=== PATIENT | female | born 1960 | race Caucasian/White ===

== ENCOUNTER 2022-05-25 01:38 | Emergency (ER) | payer BC ==
[~2022-05-25] VITALS: Ht 157.5 cm; Wt 92.5 kg
[2022-05-25 01:45] VITALS: BP 129/54
[2022-05-25] MEDS ORDERED: IPRATROPIUM BROMIDE (0.02%) 0.5MG/2.5ML NEB HHN STA (02:24)
[2022-05-25] MEDS ORDERED: ALBUTEROL (0.083%) 2.5MG/3ML NEB HHN STA (02:24)
[2022-05-25] MEDS ORDERED: BENZONATATE 200MG CAPSULE PO ONE (02:30)
[2022-05-25] MEDS ORDERED: BENZONATATE 100MG CAPSULE PO NR (02:45)
[2022-05-25] MEDS ORDERED: BENZ100C86 MT (04:33)
[2022-05-25] MEDS ORDERED: CETI5TAB5 MT (11:32)
[2022-05-25] MEDS ORDERED: FENO145T25 MT (11:32)
[2022-05-25] MEDS ORDERED: ATOR10TA69 MT (11:32)
[2022-05-25] MEDS ORDERED: LOSA25TA26 MT (11:32)
[2022-05-25] MEDS ORDERED: [UNRECOGNIZED DRUG - CODE] PO (11:32)
[2022-05-26] MEDS ORDERED: METF-416 MT (08:00)
[2022-05-26] MEDS ORDERED: MONT10TA21 MT (08:02)
[2022-05-26] MEDS ORDERED: BETA1TAB20 MT (08:10)
== END 2022-05-25 04:10 | disposition home or self-care (01) ==
LOC: ER 01:38
DX: U07.1 COVID-19 (principal); I10 Essential (primary) hypertension; E11.9 Type 2 diabetes mellitus without complications; J45.909 Unspecified asthma, uncomplicated
CPT/HCPCS: 71045; 82962; 87426; 87804; 93005; 99285; C9803; Z7610

== ENCOUNTER 2022-05-25 05:51 | Inpatient (IN) | payer BC ==
[~2022-05-25] VITALS: Ht 157.5 cm; Wt 92.8 kg
[~2022-05-25 05:51] MED LIST: BENZ100C86 MT
[2022-05-25] MEDS ORDERED: SODIUM CHLORIDE 0.9% 1,000 ML IV ONE (06:45)
[2022-05-25] MEDS ORDERED: IPRATROPIUM BROMIDE (0.02%) 0.5MG/2.5ML NEB HHN STA (07:02)
[2022-05-25] MEDS ORDERED: ALBUTEROL (0.083%) 2.5MG/3ML NEB HHN STA (07:02)
[2022-05-25 07:27] LABS: HEMOGLOBIN. 11.2 g/dL (12.0-16.0); MEAN CORPUSCULAR HEMOGLOBIN 24.8 pg (28.0-32.0); MEAN PLATELET VOLUME 8.8 fl (7.4-10.4); RED CELL DISTRIBUTION WIDTH 15.9 % (11.6-14.6)
[2022-05-25] MEDS ORDERED: ALBUTEROL 6.7GM HFA INHALER ORI ONE (07:30)
[2022-05-25 07:34] LABS: BASOPHILS % 0.9 % (0.0-2.0); EOSINOPHILS % 1.3 % (0.0-5.0); HEMATOCRIT. 34.2 % (36.0-48.0); LYMPHOCYTES % 15.1 % (20.0-50.0); MEAN CORPUSCULAR VOLUME 75.8 fL (81.0-99.0); MONOCYTES % 11.8 % (2.0-8.0); NEUTROPHILS % 70.9 % (40.0-76.0); PLATELET 268 x1000/uL (130-400); RED BLOOD CELL COUNT 4.51 mill/uL (4.2-5.4)
[2022-05-25] MEDS ORDERED: BENZONATATE 100MG CAPSULE PO ONE (07:45)
[2022-05-25 07:56] LABS: CHLORIDE 100 mEq/L (98-107)
[2022-05-25] MEDS ORDERED: KETOROLAC 15MG/ML VIAL IV ONE (09:15)
[2022-05-25] MEDS ORDERED: ASPIRIN 81MG TABLET PO ONE (09:15)
[2022-05-25] MEDS ORDERED: ONDANSETRON HCL 4MG/2ML INJ IV PRN (11:15)
[2022-05-25] MEDS ORDERED: POTASSIUM CHLORIDE 20MEQ TABLET SR PO NR (11:15)
[2022-05-25] MEDS ORDERED: [UNRECOGNIZED DRUG - CODE] PO (11:32)
[2022-05-25] MEDS ORDERED: CETI5TAB5 MT (11:32)
[2022-05-25] MEDS ORDERED: LOSA25TA26 MT (11:32)
[2022-05-25] MEDS ORDERED: FENO145T25 MT (11:32)
[2022-05-25] MEDS ORDERED: ATOR10TA69 MT (11:32)
[2022-05-25 11:40] VITALS: BP 137/56
[2022-05-25 12:00] VITALS: BP 137/56
[2022-05-25] MEDS ORDERED: AZITHROMYCIN 500 MG in DEXT 5% WATER 250 ML IV SCH ×2 (12:00→14:00)
[2022-05-25] MEDS ORDERED: DEXTROSE 50% WATER 50ML SYRINGE IV PRN (13:00)
[2022-05-25] MEDS: ZINC SULFATE 220 MG ( 50 ) CAPSULE PO SCH (13:11)
[2022-05-25] MEDS ORDERED: IPRATROPIUM/ALBUTEROL 0.5-3(2.5)MG/3ML NEB HHN PRN (14:30)
[2022-05-25] MEDS ORDERED: ERGOCALCIFEROL 50000UNITS CAPSULE PO SCH (15:00)
[2022-05-25] MEDS: GUAIFENESIN-DM 200MG-20MG/10ML UDC PO PRN (15:46)
[2022-05-25 15:55] LABS: CLARITY URINE CLEAR (CLEAR); COLOR URINE YELLOW (YELLOW); KETONES URINE TRACE (NEGATIVE); LEUKOCYTE ESTERASE URINE NEGATIVE (NEGATIVE); NITRITE URINE NEGATIVE (NEGATIVE); OCCULT BLOOD URINE NEGATIVE (NEGATIVE); PH URINE 5.5 (4.5-8.0); PROTEIN URINE NEGATIVE (NEGATIVE)
[2022-05-25 16:00] VITALS: BP 111/45
[2022-05-25] MEDS: BENZONATATE 100MG CAPSULE PO SCH (16:50)
[2022-05-25] MEDS: INSULIN LISPRO 100 UNITS/ML SUBCUT SCH ×2 (17:10→21:00)
[2022-05-25] MEDS: BLOOD SUGAR DIAGNOSTIC STRIP TEST SCH ×2 (17:25→21:00)
[2022-05-25] MEDS: ENOXAPARIN 30MG/0.3ML SYR SUBCUT SCH (17:32)
[2022-05-25] MEDS: ACETAMINOPHEN 325MG TABLET PO PRN (17:32)
[2022-05-25] MEDS ORDERED: KETOROLAC 15MG/ML VIAL IV PRN (19:15)
[2022-05-25 20:00] VITALS: BP 122/66
[2022-05-25] MEDS: ASCORBIC ACID 500 MG TABLET PO SCH (21:27)
[2022-05-26] VITALS: BP 126/65
[2022-05-26 04:00] VITALS: BP_SYST 109; BP_SYST 126; BP_DIAS 57; BP_DIAS 65
[2022-05-26] MEDS: ENOXAPARIN 30MG/0.3ML SYR SUBCUT SCH ×2 (06:41→17:13)
[2022-05-26] MEDS: BLOOD SUGAR DIAGNOSTIC STRIP TEST SCH ×4 (06:41→21:16)
[2022-05-26] MEDS: GUAIFENESIN-DM 200MG-20MG/10ML UDC PO PRN (06:41)
[2022-05-26] MEDS: INSULIN LISPRO 100 UNITS/ML SUBCUT SCH ×4 (06:42→22:11)
[2022-05-26 08:00] VITALS: BP 133/72
[2022-05-26] MEDS ORDERED: METF-416 MT (08:00)
[2022-05-26] MEDS ORDERED: MONT10TA21 MT (08:02)
[2022-05-26] MEDS ORDERED: BETA1TAB20 MT (08:10)
[2022-05-26] MEDS: ACETAMINOPHEN 325MG TABLET PO PRN (08:52)
[2022-05-26] MEDS: ZINC SULFATE 220 MG ( 50 ) CAPSULE PO SCH (08:52)
[2022-05-26] MEDS: METFORMIN HCL 500MG TABLET PO SCH ×2 (08:52→17:13)
[2022-05-26] MEDS: LOSARTAN POTASSIUM 25 MG TABLET PO SCH (08:53)
[2022-05-26] MEDS: ASCORBIC ACID 500 MG TABLET PO SCH ×2 (08:53→22:10)
[2022-05-26] MEDS: BENZONATATE 100MG CAPSULE PO SCH ×3 (08:53→17:13)
[2022-05-26] MEDS: AZITHROMYCIN 500 MG TABLET PO SCH (08:58)
[2022-05-26] MEDS ORDERED: MONTELUKAST SODIUM 10MG TABLET PO SCH (09:00)
[2022-05-26] MEDS: KETOROLAC 10MG TABLET PO PRN ×3 (09:08→23:39)
[2022-05-26 09:40] LABS: BASOPHILS % 0.8 % (0.0-2.0); EOSINOPHILS % 1.9 % (0.0-5.0); HEMATOCRIT. 32.1 % (36.0-48.0); HEMOGLOBIN. 10.6 g/dL (12.0-16.0); LYMPHOCYTES % 23.4 % (20.0-50.0); MEAN CORPUSCULAR HEMOGLOBIN 25.3 pg (28.0-32.0); MEAN CORPUSCULAR VOLUME 76.4 fL (81.0-99.0); MEAN PLATELET VOLUME 8.8 fl (7.4-10.4); NEUTROPHILS % 60.9 % (40.0-76.0); PLATELET 252 x1000/uL (130-400); RED CELL DISTRIBUTION WIDTH 16.3 % (11.6-14.6)
[2022-05-26 09:43] LABS: CHLORIDE 102 mEq/L (98-107)
[2022-05-26] MEDS: CETIRIZINE 10MG TABLET PO SCH (10:00)
[2022-05-26] MEDS ORDERED: CHLOROTHIAZIDE 250MG/5ML ORAL SYR PO SCH (11:00)
[2022-05-26] MEDS: FENOFIBRATE NANOCRYSTALLIZED 145MG TABLET PO SCH (11:00)
[2022-05-26] MEDS: FLUTICASONE/VILANTEROL 200-25 BLST.W.DEV ORI SCH (12:07)
[2022-05-26 12:23] VITALS: BP 138/66
[2022-05-26] MEDS: DEXAMETHASONE 6MG TABLET PO SCH (13:02)
[2022-05-26 16:00] VITALS: BP 109/63
[2022-05-26 20:00] VITALS: BP 122/57
[2022-05-26] MEDS: ATORVASTATIN CALCIUM 10MG TABLET PO SCH (21:00)
[2022-05-27] VITALS: BP 112/62
[2022-05-27 04:52] VITALS: BP 124/67
[2022-05-27] MEDS: ENOXAPARIN 30MG/0.3ML SYR SUBCUT SCH ×2 (05:25→18:01)
[2022-05-27] MEDS: KETOROLAC 10MG TABLET PO PRN ×2 (05:43→20:40)
[2022-05-27] MEDS: BLOOD SUGAR DIAGNOSTIC STRIP TEST SCH ×4 (05:45→20:40)
[2022-05-27] MEDS: INSULIN LISPRO 100 UNITS/ML SUBCUT SCH ×4 (06:19→21:19)
[2022-05-27 08:00] VITALS: BP 133/70
[2022-05-27] MEDS: AZITHROMYCIN 500 MG TABLET PO SCH (08:25)
[2022-05-27] MEDS: BENZONATATE 100MG CAPSULE PO SCH ×3 (08:25→18:07)
[2022-05-27] MEDS: DEXAMETHASONE 6MG TABLET PO SCH (08:26)
[2022-05-27] MEDS: ZINC SULFATE 220 MG ( 50 ) CAPSULE PO SCH (08:27)
[2022-05-27] MEDS: ASCORBIC ACID 500 MG TABLET PO SCH ×2 (08:27→20:39)
[2022-05-27] MEDS: METFORMIN HCL 500MG TABLET PO SCH ×2 (08:28→18:01)
[2022-05-27] MEDS: CETIRIZINE 10MG TABLET PO SCH (08:29)
[2022-05-27] MEDS: LOSARTAN POTASSIUM 25 MG TABLET PO SCH (08:29)
[2022-05-27] MEDS: FENOFIBRATE NANOCRYSTALLIZED 145MG TABLET PO SCH (08:31)
[2022-05-27] MEDS: ALBUTEROL 6.7GM HFA INHALER ORI PRN (08:34)
[2022-05-27] MEDS: FLUTICASONE/VILANTEROL 200-25 BLST.W.DEV ORI SCH (08:38)
[2022-05-27 16:00] VITALS: BP 133/59
[2022-05-27] MEDS: LIDOCAINE 5% PATCH TOP SCH (16:20)
[2022-05-27] MEDS ORDERED: PROMETHAZINE/DEXTROMETHORPHAN 6.25-15MG/5ML BOTTLE 120ML PO PRN (17:00)
[2022-05-27 20:00] VITALS: BP 129/74
[2022-05-27] MEDS: ATORVASTATIN CALCIUM 10MG TABLET PO SCH (20:39)
[2022-05-27] MEDS: SENNOSIDES/DOCUSATE SOD 8.6/50MG TABLET PO PRN (23:49)
[2022-05-28] VITALS: BP 139/48
[2022-05-28] MEDS: KETOROLAC 10MG TABLET PO PRN ×3 (03:05→23:46)
[2022-05-28 04:00] VITALS: BP 128/72
[2022-05-28] MEDS: ENOXAPARIN 30MG/0.3ML SYR SUBCUT SCH ×2 (06:06→17:44)
[2022-05-28] MEDS: BLOOD SUGAR DIAGNOSTIC STRIP TEST SCH ×4 (06:40→21:02)
[2022-05-28] MEDS: INSULIN LISPRO 100 UNITS/ML SUBCUT SCH ×4 (07:10→22:01)
[2022-05-28 08:00] VITALS: BP 143/71
[2022-05-28] MEDS: CETIRIZINE 10MG TABLET PO SCH (08:53)
[2022-05-28] MEDS: LOSARTAN POTASSIUM 25 MG TABLET PO SCH (08:53)
[2022-05-28] MEDS: METFORMIN HCL 500MG TABLET PO SCH ×2 (08:53→17:45)
[2022-05-28] MEDS: ZINC SULFATE 220 MG ( 50 ) CAPSULE PO SCH (08:53)
[2022-05-28] MEDS: BENZONATATE 100MG CAPSULE PO SCH ×3 (08:54→17:45)
[2022-05-28] MEDS: ASCORBIC ACID 500 MG TABLET PO SCH ×2 (08:54→21:56)
[2022-05-28] MEDS: LIDOCAINE 5% PATCH TOP SCH (08:55)
[2022-05-28] MEDS: FLUTICASONE/VILANTEROL 200-25 BLST.W.DEV ORI SCH (09:00)
[2022-05-28] MEDS: FENOFIBRATE NANOCRYSTALLIZED 145MG TABLET PO SCH (09:00)
[2022-05-28] MEDS: DEXAMETHASONE 6MG TABLET PO SCH (09:24)
[2022-05-28] MEDS: AZITHROMYCIN 500 MG TABLET PO SCH (09:25)
[2022-05-28 12:00] VITALS: BP 130/68
[2022-05-28] MEDS: ALBUTEROL 6.7GM HFA INHALER ORI SCH (12:00)
[2022-05-28] MEDS ORDERED: ERGOCALCIFEROL 50000UNITS CAPSULE PO NR (13:00)
[2022-05-28] MEDS: GUAIFENESIN 600MG ER TABLET PO SCH ×2 (13:49→21:56)
[2022-05-28] MEDS: ALBUTEROL 6.7GM HFA INHALER ORI PRN (13:50)
[2022-05-28 16:00] VITALS: BP 127/64
[2022-05-28] MEDS: SENNOSIDES/DOCUSATE SOD 8.6/50MG TABLET PO PRN (17:47)
[2022-05-28 20:00] VITALS: BP 135/87
[2022-05-28] MEDS: ATORVASTATIN CALCIUM 10MG TABLET PO SCH (21:56)
[2022-05-29] VITALS: BP 128/72
[2022-05-29 04:00] VITALS: BP 132/68
[2022-05-29] MEDS: ENOXAPARIN 30MG/0.3ML SYR SUBCUT SCH ×2 (05:39→17:33)
[2022-05-29] MEDS: INSULIN LISPRO 100 UNITS/ML SUBCUT SCH ×4 (05:56→21:56)
[2022-05-29] MEDS: BLOOD SUGAR DIAGNOSTIC STRIP TEST SCH ×4 (05:56→21:39)
[2022-05-29] MEDS: ALBUTEROL 6.7GM HFA INHALER ORI SCH ×3 (06:00→17:34)
[2022-05-29 08:00] VITALS: BP 133/63
[2022-05-29] MEDS: ALBUTEROL 6.7GM HFA INHALER ORI PRN ×3 (08:54→17:34)
[2022-05-29] MEDS: BENZONATATE 100MG CAPSULE PO SCH ×3 (08:56→17:31)
[2022-05-29] MEDS: FLUTICASONE/VILANTEROL 200-25 BLST.W.DEV ORI SCH (08:57)
[2022-05-29] MEDS: ZINC SULFATE 220 MG ( 50 ) CAPSULE PO SCH (08:57)
[2022-05-29] MEDS: DEXAMETHASONE 6MG TABLET PO SCH (08:58)
[2022-05-29] MEDS: METFORMIN HCL 500MG TABLET PO SCH ×2 (08:58→17:31)
[2022-05-29] MEDS: GUAIFENESIN 600MG ER TABLET PO SCH ×2 (08:58→21:54)
[2022-05-29] MEDS: ASCORBIC ACID 500 MG TABLET PO SCH ×2 (08:59→21:54)
[2022-05-29] MEDS: AZITHROMYCIN 500 MG TABLET PO SCH (08:59)
[2022-05-29] MEDS: LOSARTAN POTASSIUM 25 MG TABLET PO SCH (08:59)
[2022-05-29] MEDS: CETIRIZINE 10MG TABLET PO SCH (08:59)
[2022-05-29] MEDS: LIDOCAINE 5% PATCH TOP SCH (09:00)
[2022-05-29] MEDS: FENOFIBRATE NANOCRYSTALLIZED 145MG TABLET PO SCH (11:25)
[2022-05-29 12:00] VITALS: BP 127/64
[2022-05-29] MEDS ORDERED: DEXA4TAB MT (12:31)
[2022-05-29] MEDS ORDERED: BENZ100C86 MT (12:31)
[2022-05-29] MEDS ORDERED: GUAI600T44 PO (12:31)
[2022-05-29] MEDS ORDERED: IPRA3AMP9 NEB (12:31)
[2022-05-29] MEDS ORDERED: ALBU18HF2 IH (12:31)
[2022-05-29 16:00] VITALS: BP 130/67
[2022-05-29 20:00] VITALS: BP 119/52
[2022-05-29] MEDS: ATORVASTATIN CALCIUM 10MG TABLET PO SCH (21:54)
[2022-05-29] MEDS: KETOROLAC 10MG TABLET PO PRN (21:58)
[2022-05-30] VITALS: BP 131/60
[2022-05-30] MEDS: ALBUTEROL 6.7GM HFA INHALER ORI SCH
[2022-05-30 04:00] VITALS: BP 125/59
[2022-05-30] MEDS: KETOROLAC 10MG TABLET PO PRN (04:45)
[2022-05-30] MEDS: BLOOD SUGAR DIAGNOSTIC STRIP TEST SCH (06:40)
[2022-05-30] MEDS: INSULIN LISPRO 100 UNITS/ML SUBCUT SCH (07:10)
[2022-05-30 08:00] VITALS: BP 113/56
[2022-05-30] MEDS: BENZONATATE 100MG CAPSULE PO SCH (08:24)
[2022-05-30] MEDS: ZINC SULFATE 220 MG ( 50 ) CAPSULE PO SCH (08:24)
[2022-05-30] MEDS: GUAIFENESIN 600MG ER TABLET PO SCH (08:24)
[2022-05-30] MEDS: CETIRIZINE 10MG TABLET PO SCH (08:24)
[2022-05-30] MEDS: ASCORBIC ACID 500 MG TABLET PO SCH (08:24)
[2022-05-30] MEDS: DEXAMETHASONE 6MG TABLET PO SCH (08:24)
[2022-05-30] MEDS: METFORMIN HCL 500MG TABLET PO SCH (08:25)
[2022-05-30] MEDS: ENOXAPARIN 30MG/0.3ML SYR SUBCUT SCH (08:26)
[2022-05-30] MEDS: LOSARTAN POTASSIUM 25 MG TABLET PO SCH (08:31)
[2022-05-30] MEDS: FLUTICASONE/VILANTEROL 200-25 BLST.W.DEV ORI SCH (08:32)
[2022-05-30] MEDS: LIDOCAINE 5% PATCH TOP SCH (08:33)
[2022-05-30] MEDS: AZITHROMYCIN 500 MG TABLET PO SCH (08:40)
[2022-05-30] MEDS: FENOFIBRATE NANOCRYSTALLIZED 145MG TABLET PO SCH (08:40)
[2022-05-30 08:55] VITALS: BP 113/56
[2022-05-30] MEDS ORDERED: FLUT1BLS INH (18:01)
== END 2022-05-30 09:35 | disposition home or self-care (01) | DRG 871 ==
LOC: ER 05:51 → EDBEDREQ 09:26 → ENRESERV 09:42 → 7EST 11:21
PROVIDERS: ADMIT Internal Medicine; ATTEND Internal Medicine
DX: A41.89 Other specified sepsis (principal); J12.82 Pneumonia due to coronavirus disease 2019; J96.01 Acute respiratory failure with hypoxia; U07.1 COVID-19; E87.6 Hypokalemia; E11.9 Type 2 diabetes mellitus without complications; I10 Essential (primary) hypertension; D50.9 Iron deficiency anemia, unspecified; Z68.37 Body mass index [BMI] 37.0-37.9, adult; J45.909 Unspecified asthma, uncomplicated; J20.8 Acute bronchitis due to other specified organisms; E78.5 Hyperlipidemia, unspecified; J45.20 Mild intermittent asthma, uncomplicated; E66.01 Morbid (severe) obesity due to excess calories; Z90.710 Acquired absence of both cervix and uterus; Z90.49 Acquired absence of other specified parts of digestive tract; Z87.891 Personal history of nicotine dependence
CPT/HCPCS: 36415; 71045; 80048; 80053; 81003; 82962; 83880; 84145; 84484; 85025; 85379; 86140; 94640; 99285; J0456; J1650; J1815; J1885; J7030; J7060; U0003; U0005